=== PATIENT | female | born 1990 ===

== ENCOUNTER 2016-06-25 03:25 | Inpatient (IN) | payer OTHER ==
[2016-06-25] VITALS (27 sets, daily range): BP systolic 85–126; BP diastolic 50–86; PULSE 92–142; TEMP 97.3–98.6
[~2016-06-25] VITALS: Ht 154.9 cm; Wt 82.3 kg
[~2016-06-25 03:25] MED LIST: MOTRIN 600600 MG/TAB PO; PERCOCET 325 MG1 TA2 PO; PRENATAL1 TA1 PO
[2016-06-25 04:14] LABS: BASO # 0.1 (0.0-0.2); BASO % 0.5 % (0.0-2.0); EOS # 0.4 (0.0-0.7); EOS % 3.4 % (0-4.0); GRAN # 7.5 (1.4-6.5); GRAN % 67.7 % (42.2-75.2); HEMATOCRIT 42.6 % (37.0-47.0); HEMOGLOBIN 14.3 g/dl (12.5-16.0); LYMPH # 2.1 (1.2-3.4); LYMPH % 18.6 % (20.0-51.0); MEAN CELL VOLUME 90 fl (80.0-100.0); MEAN CORPUSCULAR HEMOGLOBIN 30 pg (27.0-31.0); MEAN CORPUSCULAR HGB CONC 34 g/dl (33.0-37.0); MEAN PLATELET VOLUME 10.4 fl (7.4-10.4); MONO # 0.9 (0.1-0.6); MONO % 8.4 % (1.7-9.3); PLATELET COUNT 235 K/mm3 (130-400); RED BLOOD COUNT 4.71 M/mm3 (4.10-5.30); REDCELL DISTRIBUTION WIDTH-CV 13.6 % (11.5-14.5)
[2016-06-26 02:15] VITALS: BP 83/50; PULSE 97; TEMP 97.3
[2016-06-26 09:00] VITALS: BP 111/62; PULSE 97; TEMP 97.9
[2016-06-26 09:27] LABS: HEMOGLOBIN 11.9 g/dl (12.5-16.0)
[2016-06-26] MEDS ORDERED: IBU600 MG PO (10:00)
[2016-06-26] MEDS ORDERED: PERCOCET 325 MG1 TA2 PO (10:01)
[2016-06-26] MEDS ORDERED: COLACE 100100 MG/CAP PO (10:01)
== END 2016-06-26 12:20 | disposition home or self-care (01) | DRG 775 ==
LOC: LDR 03:25 → OB 14:25
PROVIDERS: Obstetrics & Gynecology
PROC: 10E0XZZ Delivery of Products of Conception, External Approach (ICD-10-PCS; principal; 2016-06-25)
PROC: 0KQM0ZZ Repair Perineum Muscle, Open Approach (ICD-10-PCS; 2016-06-25)
PROC: 0DQR0ZZ Repair Anal Sphincter, Open Approach (ICD-10-PCS; 2016-06-25)
DX: O40.3XX0 Polyhydramnios, third trimester, not applicable or unspecified (principal); O70.21 Third degree perineal laceration during delivery, IIIa; O64.0XX0 Obstructed labor due to incomplete rotation of fetal head, not applicable or unspecified; Z3A.38 38 weeks gestation of pregnancy; Z37.0 Single live birth
CPT/HCPCS: J2400; J2590; J7120

== ENCOUNTER 2020-08-23 06:20 | Inpatient (IN) | payer BC ==
[2020-08-23] VITALS (38 sets, daily range): BP systolic 91–139; BP diastolic 54–86; PULSE 80–200; TEMP 97.5–98.5
[~2020-08-23] VITALS: Ht 154.9 cm; Wt 83.6 kg
[~2020-08-23 06:20] MED LIST changes: +COLACE 100100 MG/CAP PO; +IBU600 MG PO
--- NOTE | 2020-08-23 06:20 | NUR ---
0620- 40.2, G3L2 arrives on unit for scheduled IOL. Ambulatory to LDR5. Patient reports irregular contractions, and normal movement. Denies any LOF, or VB. Oriented to room and POC. 0640- EFM explained and placed x2. VS obtained, and assessment completed. Consent forms explained and signed. 0710- Pitocin explained and started at 2mu per orders. PCN G started and infusing well. Patient denies any further questions or needs at this time.
[2020-08-23 07:11] LABS: HEMATOCRIT 42.7 % (37.0-47.0); HEMOGLOBIN 14.2 g/dl (12.5-16.0); MEAN CELL VOLUME 91 fl (80.0-100.0); MEAN CORPUSCULAR HEMOGLOBIN 30 pg (27.0-31.0); MEAN CORPUSCULAR HGB CONC 33 g/dl (33.0-37.0); MEAN PLATELET VOLUME 9.9 fl (7.4-10.4); PLATELET COUNT 253 K/mm3 (130-400); RED BLOOD COUNT 4.68 M/mm3 (4.10-5.30); REDCELL DISTRIBUTION WIDTH-CV 14.9 % (11.5-14.5)
[2020-08-23] MEDS ORDERED: SLOW FE142 MG PO (07:26)
[2020-08-23 08:21] LABS: BAND 15 % (0-10); EOSINOPHIL 4 % (0-4); LYMPHOCYTE 16 % (20.0-51.0); NEUTROPHILS 59 % (42.0-75.2)
[2020-08-23 08:22] LABS: PLATELET ESTIMATE NORMAL (NORMAL)
--- NOTE | 2020-08-23 09:00 | NUR ---
Patient declines covid test.
--- NOTE | 2020-08-23 10:13 | NUR ---
Bilateral side lying hip release.
--- NOTE | 2020-08-23 11:22 | NUR ---
1122- Dr. Gonzales on unit for AROM. To patient bedside and reviews POC with patient and spouse. Patient requesting epidural. Kelsie Knight CARDIAC MONITOR notified. 1145- Kelsie Knight CARDIAC MONITOR to bedside for epidural placement. Pt to edge of bed. 1150- Epidural placed and single shot at this time by Kelsie Knigth CRNA. 1155- Patient wedge left. EFM adjusted. Safety precautions reviewed. 1201- Dr. Gonzales to bedside. AROM at this time for moderate amount of clear fluids. Yuliya care provied, patient wedge left. SVE by provider /-1. 1209- Variable decel noted. RN to bedside. Patient reports increased rectal pressure and urge to push. SVE by this RN C/-1. Dr. Gonzales remains at nurses desk and notified. 1217- Patient begins to push with contractions with RN at bedside. Strong maternal effort, moves vertex well. 1220- Dr. Gonzales to bedside for delivery. 1224- Spontaneous vaginal delivery of viable male . To mother's chest where dried and stimulated by nursery RN. Pitocin paused. 1226- Cord clamped x2 and cut by father of . Care of assumed by Lakeshia Godinez RN. 1228- Spontaneous and intact delivery of placenta. Pitocin resumed at 333ml/hr per protocol. 2nd degree perineal laceration repaired by Dr. Gonzales. Straight cath by Dr. Gonzales. Yuliya care provided, pads changed, and ice pack to perineum. Plan of care and safety precautions reviewed with patient and spouse who verbalize understanding. Denies questions or needs at this time. See doctor dictation, anesthesia record, and nurses notes.
--- NOTE | 2020-08-23 14:30 | NUR ---
Patient assisted to edge of bed. Reports mild dizzines, resolves. Ambulatory to bathroom with assist x1. Unable to void at this time. Yuliya care provided, pads changed, ice pack to perineum. To 207 via wheel chair. Patient instructed to increase fluids and attempt void in 1 hour. Verbalizes understanding. Oriented to PP room and plan of care. Patient denies questions or needs. Resting with call light within reach.
[2020-08-24 03:22] VITALS: BP 103/60; PULSE 90; TEMP 97.6
[2020-08-24] MEDS ORDERED: IBU600 MG PO (05:27)
[2020-08-24 08:55] VITALS: BP 100/63; PULSE 94; TEMP 97.7
--- NOTE | 2020-08-24 10:00 | NUR ---
Initial visit; Parents thanked Employment Case Manager for offering congratulations and God's blessings for the of their son. Employment Case Manager thanked family for choosing [facility].
[2020-08-24 10:36] LABS: HEMATOCRIT 36.8 % (37.0-47.0); HEMOGLOBIN 11.8 g/dl (12.5-16.0)
[2020-08-24 16:40] VITALS: BP 109/68; PULSE 92; TEMP 97.6
[2020-08-24 21:35] VITALS: BP 103/63; PULSE 88; TEMP 97.8
[2020-08-25 07:15] VITALS: BP 103/66; PULSE 104; TEMP 98.3
== END 2020-08-25 13:15 | disposition home or self-care (01) | DRG 806 ==
LOC: LDR 06:20 → OB 14:45
PROVIDERS: ADMIT Obstetrics & Gynecology
PROC: 10E0XZZ Delivery of Products of Conception, External Approach (ICD-10-PCS; principal; 2020-08-23)
PROC: 10907ZC Drainage of Amniotic Fluid, Therapeutic from Products of Conception, Via Natural or Artificial Opening (ICD-10-PCS; 2020-08-23)
PROC: 0UQGXZZ Repair Vagina, External Approach (ICD-10-PCS; 2020-08-23)
DX: O48.0 Post-term pregnancy (principal); O71.4 Obstetric high vaginal laceration alone; Z37.0 Single live birth; Z3A.40 40 weeks gestation of pregnancy; O99.824 Streptococcus B carrier state complicating childbirth; O99.72 Diseases of the skin and subcutaneous tissue complicating childbirth; L30.9 Dermatitis, unspecified; O99.02 Anemia complicating childbirth; D64.9 Anemia, unspecified; Z86.16 Personal history of COVID-19
CPT/HCPCS: J2540; J2590; J2795; J7120